=== PATIENT | male | born 2000 | race Caucasian/White ===

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

== ENCOUNTER 2020-06-25 19:12 | Emergency (ER) | payer BC ==
[~2020-06-25] VITALS: Ht 182.9 cm; Wt 78.0 kg
[2020-06-25 19:35] VITALS: BP_SYST 118
--- NOTE | 2020-06-25 21:00 | NUR ---
Placed in H1 . Report given to Elan.
--- NOTE | 2020-06-25 21:15 | NUR ---
DR CASTRO IN TO ASSESS
--- NOTE | 2020-06-25 21:30 | NUR ---
HERE FOR C/O RT WRIST PAIN S/P INJURY
--- NOTE | 2020-06-25 22:28 | NUR ---
SPLINT APPLIED, CIRCULATION AND SENSATION INTACT.
--- NOTE | 2020-06-25 22:31 | NUR ---
splint applied to right hand in the position of function. radial pulse noted. Capillary refill <3seconds. Patient has ability to move non-splinted digits. Has sensation present to affected site. Skin color within normal limits. Applied for pain management control.
[2020-06-25 22:40] VITALS: BP_SYST 118
--- NOTE | 2020-06-25 22:40 | NUR ---
Patient given written and verbal discharge instructions and verbalizes understanding. ER MD discussed with patient the results and treatment provided. Patient in stable condition. ID arm band removed. no rxgiven. Patient educated on pain management and to follow up with PMD. Pain Scale 0/10 Opportunity for questions provided and answered.
== END 2020-06-25 22:40 | disposition home or self-care (01) ==
LOC: SED 19:12
DX: M79.641 Pain in right hand (principal); J45.909 Unspecified asthma, uncomplicated; F12.90 Cannabis use, unspecified, uncomplicated; V00.131A Fall from skateboard, initial encounter; Y93.51 Activity, roller skating (inline) and skateboarding; Y92.89 Other specified places as the place of occurrence of the external cause; Y99.8 Other external cause status
CPT/HCPCS: 99283

== ENCOUNTER 2020-08-02 09:09 | Emergency (ER) | payer BC ==
[~2020-08-02] VITALS: Ht 182.9 cm; Wt 77.1 kg
[2020-08-02 09:16] VITALS: BP_SYST 128
[2020-08-02] MEDS ORDERED: IBUP-1969 PO (09:22)
[2020-08-02 09:25] VITALS: BP_SYST 128
== END 2020-08-02 09:25 | disposition home or self-care (01) ==
LOC: SED 09:09
DX: J02.8 Acute pharyngitis due to other specified organisms (principal); B97.89 Other viral agents as the cause of diseases classified elsewhere; J45.909 Unspecified asthma, uncomplicated; Z79.899 Other long term (current) drug therapy
CPT/HCPCS: 99282

== ENCOUNTER 2020-08-21 07:58 | Emergency (ER) | payer BC ==
[~2020-08-21] VITALS: Ht 182.9 cm; Wt 77.1 kg
[2020-08-21 07:58] VITALS: BP_SYST 124
[~2020-08-21 07:58] MED LIST: IBUP-1969 PO
[2020-08-21] MEDS ORDERED: PENI250T2 PO (08:44)
[2020-08-21] MEDS ORDERED: HYDROcodone/ACETAMIN 7.5-325 MG TAB PO ONE (08:45)
[2020-08-21] MEDS ORDERED: PENICILLIN G BENZATHINE 1.2 MMU/2 ML SYR IM ONE (08:45)
[2020-08-21 08:53] VITALS: BP_SYST 120
== END 2020-08-21 08:53 | disposition home or self-care (01) ==
LOC: SED 07:58
DX: J03.90 Acute tonsillitis, unspecified (principal)
CPT/HCPCS: 86403; 87081; 96372; 99283; J0561; 36415